=== PATIENT | male | born 1935 | race Two or more races ===

== ENCOUNTER 2018-12-28 10:44 | Outpatient (CLI) | payer MEDICARE, OTHER ==
--- NOTE | 2018-12-28 11:35 | Diagnostic Imaging Report ---
Indication: Facial pain Technique: Continuous helical transaxial imaging of the maxillofacial structures obtained without intravenous contrast administration. Coronal 2-D reformats were also obtained. Study obtained in a Siemens sensation [address] Automatic Exposure Control was utilized. Total Dose length Product (DLP): [address] Dose Index Volume (CTDIvol): 0.15, 28.19 mGy Comparison: None Findings: There is thickening of the wall the left maxillary antrum with mucosal thickening, signs of osteitis and chronic sinusitis. There is mucosal thickening in the ethmoid sinus. The frontal sinus and sphenoid sinus appear clear. Nasal septum is relatively midline. Orbits are unremarkable. Calcification of the wall of the cavernous and supraclinoid ICA noted bilaterally. The mastoids are clear bilaterally. TMJ appears unremarkable. IMPRESSION: Chronic sinusitis as described above The CT scanner at [facility] is accredited by the [employer] and the scans are performed using dose optimization techniques as appropriate to a performed exam including Automatic Exposure control.
--- NOTE | 2018-12-28 12:08 | Diagnostic Imaging Report ---
Indication: Chest pain Technique: Continuous helical transaxial imaging of the chest was obtained from the thoracic inlet to the upper abdomen. No intravenous contrast was administered. Coronal 2-D reformats were also obtained. Total Dose length Product (DLP): 389.[address] Dose Index Volume (CTDIvol): 10.32 mGy Comparison: none Findings: There is extensive chronic disease within the lungs with streaky opacities involving portions of the middle lobe and lingula associated with the moderate degree of bronchiectasis indicating fibrosis and traction. Some bronchiectasis noted in the posterior basilar aspects of the lungs as well. The fibrosis and chronic disease is intermixed with areas of more ill-defined groundglass opacification most notable within the right lower lobe. There is also a small branching opacities likely a tree-in-bud within a small portion of the right lower lobe. Active disease or infiltrate should be considered. In addition in the left superior segment of the lower lobe there is a small cavitary lesion measured 1.5 cm (#27/series 5). In light of the bronchiectasis present elsewhere, it is possible that this is another more prominent focus of bronchiectasis with a fluid level. There are multiple cysts suggested within both kidneys. Aorta is moderately calcified and also ectatic. Ascending aorta is dilated measuring close to 5 cm. There are calcifications in the mediastinum likely on the basis of old granulomatous disease. 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 Superimposed infiltrates especially within the posterior basilar right lower lobe suspected. Clinical correlation is needed. Question of a small cavitary lesion 1.5 cm within the left lower lobe. This is likely inflammatory/infectious. 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 Atherosclerotic disease of aorta. Large partially imaged cysts within both kidneys. The CT scanner at [facility] is accredited by the [employer] and the scans are performed using dose optimization techniques as appropriate to a performed exam including Automatic Exposure control.
== END 2018-12-28 12:44 | disposition home or self-care (01) ==
LOC: CAT 10:44
DX: J45.909 Unspecified asthma, uncomplicated (principal); R05 Cough; J30.9 Allergic rhinitis, unspecified; N28.1 Cyst of kidney, acquired; J32.9 Chronic sinusitis, unspecified
CPT/HCPCS: 70486; 71250